=== PATIENT | male | born 1930 | race Caucasian/White ===

== ENCOUNTER 2017-07-02 18:54 | Emergency (ER) | payer OTHER ==
[~2017-07-02] VITALS: Ht 165.1 cm; Wt 70.3 kg
[2017-07-02] MEDS ORDERED: BISOPROLOL-HCT1 EACH PO (19:21)
[2017-07-02] MEDS ORDERED: ALPRAZOLAM0.5 MG PO (19:22)
== END 2017-07-02 22:34 | disposition home or self-care (01) ==
LOC: ER 18:54
DX: M54.2 Cervicalgia (principal)

== ENCOUNTER 2017-07-04 10:28 | Emergency (ER) | payer OTHER ==
[~2017-07-04] VITALS: Ht 167.6 cm; Wt 66.9 kg
[~2017-07-04 10:28] MED LIST: ALPRAZOLAM0.5 MG PO; BISOPROLOL-HCT1 EACH PO
[2017-07-04] MEDS ORDERED: NEURONTIN300 MG PO (11:07)
[2017-07-04] MEDS ORDERED: VALTREX1000 MG PO (11:07)
== END 2017-07-04 11:20 | disposition home or self-care (01) ==
LOC: ER 10:28
DX: B02.9 Zoster without complications (principal)

== ENCOUNTER 2017-07-17 10:10 | Emergency (ER) | payer OTHER ==
[~2017-07-17] VITALS: Ht 170.2 cm; Wt 76.2 kg
[~2017-07-17 10:10] MED LIST changes: +NEURONTIN300 MG PO; +VALTREX1000 MG PO
== END 2017-07-17 13:03 | disposition home or self-care (01) ==
LOC: ER 10:10
DX: B02.8 Zoster with other complications (principal)